=== PATIENT | male | born 1955 | race Caucasian/White ===

== ENCOUNTER 2018-11-13 05:56 | Day surgery (SDC) | payer MEDICARE ==
[2018-11-13] MEDS ORDERED: TRANEXAMIC ACID 1,000 MG/10 ML ML IV ONE ×2 (05:57)
[2018-11-13] MEDS ORDERED: FENTANYL PF 100MCG/2ML VIAL IV ONE (05:57)
[2018-11-13] MEDS ORDERED: 0.9 % SODIUM CHLORIDE 10 ML VIAL IVP ONE (05:57)
[2018-11-13] MEDS ORDERED: KETOROLAC 30 MG/ML VIAL IVP ONE (05:57)
[2018-11-13] MEDS ORDERED: VANCOMYCIN HCL 1 GM VIAL IVPB ONE (05:57)
[2018-11-13] MEDS ORDERED: DEXAMETHASONE 4 MG/ML 1ML VIAL IVP ONE (05:57)
[2018-11-13] MEDS ORDERED: PROPOFOL 10 MG/ML VIAL IV ONE (05:57)
[2018-11-13] MEDS ORDERED: MIDAZOLAM HCL 2MG/2ML VIAL IV ONE (05:57)
[2018-11-13] MEDS ORDERED: LIDOCAINE 2% MDV (20MG/ML) 20ML VIAL IV ONE (05:57)
[2018-11-13] MEDS ORDERED: ROPIVACAINE HCL (NAROPIN) /PF 5MG/ML 20ML VIAL IV ONE (05:57)
[2018-11-13] MEDS ORDERED: METOCLOPRAMIDE 10 MG TABLET PO ONE (06:00)
[2018-11-13] MEDS ORDERED: CELECOXIB 100 MG CAPSULE PO ONE (06:00)
[2018-11-13] MEDS ORDERED: VANCOMYCIN HCL 1 MG in DEXTROSE 5 % IN WATER 250 ML IVPB ONE ×2 (06:00)
[2018-11-13] MEDS ORDERED: ACETAMINOPHEN 1,000 MG/100 ML BTL IVPB ONE (06:00)
[2018-11-13] MEDS ORDERED: CEFAZOLIN 2 Gram 2 GM/50 ML BAG IVPB SCH (06:00)
[2018-11-13] MEDS ORDERED: SCOPOLAMINE 1 PATCH TDSY TD ONE (06:00)
[2018-11-13] MEDS ORDERED: FAMOTIDINE 20MG TABLET PO ONE (06:00)
[2018-11-13] MEDS ORDERED: RINGERS SOLUTION,LACTATED 1,000 ML IV ONE ×2 (06:40→08:20)
[2018-11-13 06:57] LABS: ABO GROUP A; ANTIBODY SCREEN NEGATIVE (NEGATIVE); RH TYPE POSITIVE
[2018-11-13] MEDS ORDERED: RINGERS SOLUTION,LACTATED 400 ML IV ONE (07:58)
[2018-11-13] MEDS ORDERED: ACETAMINOPHEN 325 MG TAB PO PRN (07:59)
[2018-11-13] MEDS ORDERED: METOCLOPRAMIDE 10 MG TABLET PO PRN (07:59)
[2018-11-13] MEDS ORDERED: MAGNESIUM HYDROXIDE 30 ML UDC PO PRN (07:59)
[2018-11-13] MEDS ORDERED: ACETAMINOPHEN W/ CODEINE 300MG/60MG TABLET PO PRN ×2 (07:59)
[2018-11-13] MEDS ORDERED: DIPHENHYDRAMINE HCL 25 MG CAPSULE PO PRN (07:59)
[2018-11-13] MEDS ORDERED: ACETAMINOPHEN W/ CODEINE 300MG/30MG TABLET PO PRN ×2 (07:59)
[2018-11-13] MEDS ORDERED: HYDROCODONE/APAP 5/325MG TABLET PO PRN ×2 (07:59)
[2018-11-13] MEDS ORDERED: HYDROCODONE/APAP 7.5/325MG TABLET PO PRN (07:59)
[2018-11-13] MEDS ORDERED: NALOXONE 0.4 MG/1 ML VIAL IVP PRN (07:59)
[2018-11-13] MEDS ORDERED: BISACODYL 10 MG SUPP RC PRN (07:59)
[2018-11-13] MEDS ORDERED: ONDANSETRON 4 MG ODT TABLET SL PRN (07:59)
[2018-11-13] MEDS ORDERED: AL HYDROX/MAG HYDROX 30ML UD PO PRN (07:59)
[2018-11-13] MEDS ORDERED: KETOROLAC 30 MG/ML VIAL IVP PRN ×2 (07:59)
[2018-11-13] MEDS ORDERED: PROMETHAZINE HCL 25 MG TABLET PO PRN (07:59)
[2018-11-13] MEDS ORDERED: TRAMADOL HCL 50 MG TABLET PO PRN ×2 (07:59)
[2018-11-13] MEDS ORDERED: BUPIVACAINE 0.5% W/EPI MPF 30 ML VIAL SQ ONE (08:32)
[2018-11-13] MEDS ORDERED: BUPIVACAINE LIPOSOME 266MG/20ML VIAL SQ ONE (08:32)
[2018-11-13] MEDS ORDERED: VANCOMYCIN HCL 3,000 MG in RINGERS SOLUTION,LACTATED 3,000 ML IVPB ONE (08:39)
[2018-11-13] MEDS ORDERED: DEXTROSE 5 % AND 0.9 % NACL 1,000 ML IV PRN (10:00)
[2018-11-13] MEDS ORDERED: VANCOMYCIN HCL 500 MG in 0.9 % SODIUM CHLORIDE 100ML 100 ML IVPB SCH (11:00)
[2018-11-13] MEDS: HYDROCODONE/APAP 7.5/325MG TABLET PO PRN ×2 (15:23→16:12)
--- NOTE | 2018-11-13 15:39 | Rehab Evaluation ---
Patient Information - Patient Information Diagnosis: R knee DJD Ordered Treatment: PT Evaluate and Treat Status: Initial Evaluation Past Medical/Surgical Hx: PAST MEDICAL/SURGICAL HISTORY Past Surgical History TONSILS A CHILD C SCOPE PMH - Respiratory Hx Respiratory Disorders No PMH - Cardiovascular Hx Cardiovascular Disorders No Exercise Tolerance Good PMH - Neuro Hx Neurological Disorders Yes Hx Headaches Yes: OCCASSIONALLY PMH - GI Hx Gastrointestinal Disorders Yes Hx Hepatitis/Jaundice Yes: HEP C TREATMENT 2013 VIRAL LOAD ZERO PMH - Hx Genitourinary Disorders No PMH - Endocrine Hx Endocrine Disorders Yes Hx Thyroid Disease Yes PMH - Musculoskeletal Hx Musculoskeletal Disorders Yes Hx Arthritis Yes: KNEES AND THUMBS PMH - Psych Hx Psychiatric Problems Yes Hx Anxiety Yes Hx Depression Yes Comment: ADHD PMH - Hematology/Oncology Hx Hematology/Oncology No Disorders Premorbid Status: Detail (The patient was independent with all mobility prior to surgery.) Social History: Detail (The patient lives in a one story house with his mother with 2 curb type steps at the enterance. The bathroom is equipped with: a walk in shower with grab bars, shower bench, hand held shower , elevated toilet and grab bars. The patient has a standard walker.) Precautions: [place], Fall, Other (WBAT on the R LE) - Time With Patient Total Time Spent With Patient (Min): 30 Treatment Procedures: Detail (Initial Evaluation, gait training) Subjective Information - Subjective Information Per Patient (The patient had no complaints of pain.) Objective Data - Mental Status Patient Orientation: Oriented x3 - Visual Perception Appears within normal limits for therapeutic activities - ROM Not within normal limits (The patient's R knee is limited as to be expected s/p surgery. All other AROM is WFL.) - Strength/Tone Not within normal limits (The patient's R LE was not tested s/p surgery however was functional. The patient's L LE strength is functional.) - Bed Mobility Independent (The patient used L LE to lift R LE with supine to and from sit transfer. The patient was independent with scooting up in bed. T) - Transfers Independent (The patient was independent with sit to and from stand transfer.) - Balance Balance Sitting: Good Balance Standing: Good - Gait Detail (The patient ambulated with standard walker a distance of 108 feet x 1 WBAT on the R LE independently . Initially the patient required verbal cues for proper technique. The patient ambulated on 3 steps with use of railing and folded walker using proper technique with supervision for safety.) Therapy Assessment - Therapy Assessment Detail (The patient was independent with bed mobility, transfers and ambulation. The patient has met all inpatient PT goals.) Patient Education - Patient Education Teaching Topic: Exercise/Activity (The patient completed TKA HEP including: seated heel slides, quad sets, gluteal sets, hamstring sets, SLR and ankle pumps.) Response: Return Demonstration Teaching Method: Handout Teaching Recipient: Patient Barriers To Learning: Age Related Problem List - Problem List Physical Therapy Problem List: Detail (Decreased L knee AROM and decreased L LE strength.) Goals - Goals Physical Therapy Goals: The patient has met all inpatient PT goals. Prognosis - Prognosis Good Plan - Plan Physical Therapy Plan: The patient is discharged from inpatient PT and is to receive Home PT.
--- NOTE | 2018-11-13 15:59 | Rehab Evaluation ---
Patient Information - Patient Information Diagnosis: R knee DJD Ordered Treatment: OT Evaluate and Treat Status: Initial Evaluation Surgery: Yes (right total knee) Date of Surgery: 11/13/18 Past Medical/Surgical Hx: PAST MEDICAL/SURGICAL HISTORY Past Surgical History TONSILS A CHILD C SCOPE PMH - Respiratory Hx Respiratory Disorders No PMH - Cardiovascular Hx Cardiovascular Disorders No Exercise Tolerance Good PMH - Neuro Hx Neurological Disorders Yes Hx Headaches Yes: OCCASSIONALLY PMH - GI Hx Gastrointestinal Disorders Yes Hx Hepatitis/Jaundice Yes: HEP C TREATMENT 2013 VIRAL LOAD ZERO PMH - Hx Genitourinary Disorders No PMH - Endocrine Hx Endocrine Disorders Yes Hx Thyroid Disease Yes PMH - Musculoskeletal Hx Musculoskeletal Disorders Yes Hx Arthritis Yes: KNEES AND THUMBS PMH - Psych Hx Psychiatric Problems Yes Hx Anxiety Yes Hx Depression Yes Comment: ADHD PMH - Hematology/Oncology Hx Hematology/Oncology No Disorders Premorbid Status: Detail (The patient was independent with all mobility, home mgmt, meal prep and laundry prior to surgery.) Social History: Detail (The patient lives in a one story house with his mother with 2 curb type steps at the entrance. The bathroom is equipped with: a walk in shower with grab bars, shower bench, hand held shower , elevated toilet and grab bars. The patient has a standard walker.) Precautions: [place], Fall, Other (WBAT on the R LE) - Time With Patient Total Time Spent With Patient (Min): 25 Treatment Procedures: Detail (OT eval low complexity) Subjective Information - Subjective Information Per Patient Objective Data - Pain Pain Present: No - Mental Status Patient Orientation: Oriented x3 - Visual Perception Appears within normal limits for therapeutic activities - ROM Within normal limits (Rodrigo UE AROM WNL) - Strength/Tone Within normal limits (Rodrigo UE strength WNL) - Coordination Appears within normal limits for therapeutic activities - Bed Mobility Independent (Ind with supine to sit) - Transfers Independent (Ind with sit to stand from EOB and commode heights) - Balance Balance Sitting: Good Balance Standing: Fair - Sensation Intact - Gait Detail (Pt ambulating in room with standard walker and SBA) - ADL's/IADL's Detail (Pt educated and able to demonstrate learning of modified LE dressing techniques including doffing slipper socks and donning underwear, PJ bottoms and tennis shoes. Reviewed donning technique for terrance socks, pt verbalized understanding. Pt educated re: home mgmt, meal prep/kitchen, laundry and bathroom safety and modifications, pt verbalized understanding.) Therapy Assessment - Therapy Assessment Detail (Pt is Ind with modified LE dressing techniques.) Problem List - Problem List Occupational Therapy Problem List: Detail (No current IP OT problems identified. ) Goals - Goals Occupational Therapy Goals: No current IP OT goals identified. Prognosis - Prognosis Good Plan - Plan Occupational Therapy Plan: No further IP OT recommended. Thank you for this referral.
[2018-11-13] MEDS ORDERED: DOCUSATE SODIUM 100 MG CAPSULE PO SCH (22:00)
--- NOTE | 2018-11-15 07:10 | Operative Note ---
DATE OF SURGERY: PREOPERATIVE DIAGNOSIS: End-stage right knee arthrosis. POSTOPERATIVE DIAGNOSIS: End-stage right knee arthrosis. OPERATION: Right total knee arthroplasty. SURGEON: Shabbir Sigala MD ANESTHESIA: Spinal, George BANEAGS. COMPLICATIONS: None. ESTIMATED BLOOD LOSS: Minimal. TOURNIQUET TIME: 70 minutes. OPERATIVE FINDINGS: Severe [id number] medial compartment arthrosis. COMPONENTS PLACED: A 2 g vancomycin cemented [employer] II Oxinium total knee arthroplasty system, size 9 femoral insert, a size 8 tibial baseplate, a 9 mm thick tibial poly insert, and 38 mm cemented patellar component. INDICATIONS: This is a 63-year-old male who has had persistent pain and dysfunction in the knee for several years. Failed nonoperative treatment. Scheduled for a knee replacement. I explained all the risks and benefits in detail for the diagnosis and procedure including but not limited to infection, nerve injury, vessel injury, persistent pain, stiffness, numbness, tingling in the knee, periprosthetic fracture, need for resection arthroplasty if components become infected or loosen, blood clot, and need for further procedures. All his questions were answered. The course was outlined. He agreed to proceed. PROCEDURE: The patient brought to the OR, placed in the supine position, prepped for surgery. Spinal anesthesia induced. The right lower extremity and knee were prepped and draped in sterile fashion. Right knee prepped again with Chloraprep after it was draped. Intraoperative timeout was performed. Next, the incision was marked, infiltrated with 0.5% Marcaine with epinephrine, Exparel, and tranexamic mixture. We exsanguinated the leg with Esmarch, flexed the knee, and inflated to 250 mmHg pressure. Next, skin and subcutaneous tissue was dissected down. Medial and lateral skin flaps made. Incised the capsule medially around the medial border of the patella to the tibial tubercle. Incised the vastus medialis in line with its fibers in a mid vastus approach. I partially resected the retropatellar fat pad, elevated the capsule subperiosteally and medially, everted the patella, and flexed the knee. He had severe [id number] erosive arthrosis on the tibia medially. We drilled intracondylar drill hole and inserted intramedullary guide garcia and the 6-degree cutting block. We pinned the cutting block in the +2 mm position, cut the distal femoral condyle, placed a sizing jig on the distal femoral cut, sized to be size 9 off the anterolateral femur cortex. Drilled 2 pin holes. Through the pin holes, we placed the 5-in-1 cutting jig. We dialed the anterior cut so it would come out flush without notching. We cut that cut first to verify its position, and it was a good cut with a good footprint. We then pinned the cutting jig and cut the remaining chamfer cuts in the usual fashion. Placed a size trial 9 femoral trial component, centered it, pinned it, removed osteophytes medially and laterally. Inserted the resection collet, reamed out and box osteotomed out the cruciate bone block. Attention turned to the tibia. Seated the spikes, exposed the tibia, seated the spikes and the external alignment jig in the tubercular groove 2 fingerbreadths distally off the cortex off the center of the third tibial tubercle, and then we referenced for a 7 mm cut off the higher lateral plateau. We pinned the cutting jig provisionally with 2 anterior-posterior pins. Next, we rechecked alignment of the cutting jig using a drop garcia centered on the tibial anatomic axis and then cross-pinned the cutting jig completing its fixation, and cut the tibia. Next, we removed osteophytes from the posterior femoral condyle using a curved osteotome and checked the flexion/extension gaps. We had symmetric flexion/extension gaps with a 9 mm thick poly insert. Allowed for 1-2 mm of varus/valgus laxity in flexion/extension. Overall alignment in extension was anatomic in valgus orientation with alignment garcia centered on the hip joint and ankle joint. Next, took the knee in flexion and sized the tibial baseplate to a size 8, the largest we had. Then we replaced all trial components again with the knee in extension with alignment garcia centered on the hip joint and ankle joint. Marked electrocautery baker on the anterior tibial cortex over the laser incki to the tibial baseplate. Attention turned to the patella, and measured the patella to be 26 mm. Set the cutting jig at 17 mm to allow for a 9 mm thick poly insert. Cut the patella, chamfered off lateral patellar facet, remeasured right on . We then medialized as much as possible, sized it to be 38. We drilled 3 peg holes, placed the trial patellar component. Mixed cement and did a trial reduction. The patella tracked nicely handsfree to full extension, flexion to 134 degrees, again symmetric flexion/extension gaps. Next, we took the knee into flexion, seated the tibial baseplate off the previously placed electrocautery baker, pinned it in place, and drilled out and keel punched the keel hole. Next, we placed a bone plug in the femoral canal hole. Placed the drill bit in the tibial keel hole and then irrigated, changed gloves, and backed down the tibial component first, then the femoral component. Removed excess cement and placed the trial tibial poly liner. Held the knee in extension until the cement hardened and clamped down on the patellar component once cement hardened to remove excess cement. Took the knee in flexion. Extracted the knee bone hook and sponge. Irrigated copiously. We verified all the excess cement was removed and then injected several sticks of 0.5% Marcaine with epinephrine, tranexamic acid, and Exparel mixture in the posterior, medial, and lateral capsule working out peripherally, the medial and lateral periosteum, patellar tendon, and working to the vastus medialis and subcutaneous. Next, inserted the tibial poly insert and verified it was interlocked medially and laterally. We found our range of motion was still the same. We irrigated and closed the knee in flexion with a running #2 quill suture, and we closed the skin deep with several 2-0 Vicryl. Provisional dressing was applied with Acticoat and it will be changed prior to discharge as an outpatient. Sterile dressing applied, Brett wrap, and Ice Cool wrap. Tolerated the procedure well. No intraoperative complications. Sponge, needle, and blade counts correct. Recovery room stable, neurovascularly intact. Discharged office. He will follow up in 2 weeks. Have home therapy nurse. CC: Dr. Andrei SALAZAR
== END 2018-11-13 16:45 | disposition home health service (06) ==
LOC: SUR 05:56 → MEDSURG 10:43 → SUR 16:45
PROVIDERS: ATTEND Orthopaedic Surgery
DX: M17.11 Unilateral primary osteoarthritis, right knee (principal); E03.9 Hypothyroidism, unspecified; F90.9 Attention-deficit hyperactivity disorder, unspecified type; Z86.19 Personal history of other infectious and parasitic diseases
CPT/HCPCS: 86850; 86900; 86901; 93005; J1885; J3370; J7060; J7120